=== PATIENT | female | born 1965 | race Caucasian/White ===

== ENCOUNTER → 2019-08-25 14:49 | Outpatient (BNVA) | payer MEDICAID, SELFPAY | PROVIDERS: Family Provider Family Medicine; PCP Family Medicine; Referring Provider Family Medicine; Visit Provider Internal Medicine Rheumatology | DX: L40.50 Arthropathic psoriasis, unspecified (principal); Z79.899 Other long term (current) drug therapy; I10 Essential (primary) hypertension; Z87.891 Personal history of nicotine dependence | CPT/HCPCS: 99213 ==

== ENCOUNTER → 2019-12-03 13:27 | Outpatient (BNVA) | payer MEDICAID, SELFPAY | PROVIDERS: Family Provider Family Medicine; PCP Family Medicine; Visit Provider Internal Medicine Rheumatology | DX: Z79.899 Other long term (current) drug therapy (principal); L40.50 Arthropathic psoriasis, unspecified | CPT/HCPCS: 36415; 80076; 82306; 82565; 85025; 85651; 86140 ==

== ENCOUNTER → 2020-03-02 11:48 | Outpatient (BNVA) | payer MEDICARE, MEDICAID, SELFPAY | PROVIDERS: Family Provider Family Medicine; PCP Family Medicine; Visit Provider Internal Medicine Rheumatology | DX: L40.50 Arthropathic psoriasis, unspecified (principal); Z79.899 Other long term (current) drug therapy; L40.8 Other psoriasis; M48.061 Spinal stenosis, lumbar region without neurogenic claudication; Z86.73 Personal history of transient ischemic attack (TIA), and cerebral infarction without residual deficits | CPT/HCPCS: 99214 ==

== ENCOUNTER → 2020-06-07 11:03 | Outpatient (BNVA) | payer MEDICARE, MEDICAID, SELFPAY | PROVIDERS: Family Provider Family Medicine; PCP Family Medicine; Visit Provider Internal Medicine Rheumatology | DX: L40.50 Arthropathic psoriasis, unspecified (principal); Z79.899 Other long term (current) drug therapy; L40.8 Other psoriasis; M48.061 Spinal stenosis, lumbar region without neurogenic claudication | CPT/HCPCS: 99214 ==

== ENCOUNTER → 2020-12-09 09:24 | Outpatient (BNVA) | payer MEDICARE, MEDICAID, SELFPAY | PROVIDERS: Family Provider Family Medicine; PCP Family Medicine; Visit Provider Surgery | DX: Z01.812 Encounter for preprocedural laboratory examination (principal); Z20.822 Contact with and (suspected) exposure to COVID-19 | CPT/HCPCS: 87635 ==

== ENCOUNTER 2020-12-15 12:54 | Day surgery (SDC) | payer MEDICARE, MEDICAID, SELFPAY ==
[2020-12-15] VITALS (7 sets, daily range): BP systolic 110–173; BP diastolic 68–114; PULSE 57–80; RESP 15–18; TEMP 36.3–36.8; O2SAT 91–96
--- NOTE | 2020-12-15 14:08 | P.ANESASSM_ITS ---
Pre-Anesthetic Assessment Pre-Anesthetic Assessment: Height/Weight: Height 1.73 m Temp Pulse Resp BP Pulse Ox 98.3 F 63 18 173/114 96 12/15/20 13:17 12/15/20 13:17 12/15/20 13:17 12/15/20 13:17 12/15/20 13:17 Proposed Procedure: Operation Date: 12/15/20 14:10 Proposed Procedures p Laparoscopic Adhesiolysis 08808 R10.32 K66.0(Not Applicable) - Aroldo Mcknight MD Was Beta Jermaine taken within 24 hours: Yes Was Clonidine taken within 24 hours: N/A Last intake: Intake Last Liquid Date 12/14/20 Last Liquid Time 19:00 Last Solid Date 12/14/20 Last Solid Time 19:00 Social: Social History: No alcohol and No tobacco (Smokes pot) Exam: Pre-Anes Outpt Exam: alert, oriented x 3, clear to auscultation bilat erally and regular rate & rhythm Airway: Submandibular: WNL Cervical ROM: WNL Dentition: Full CV/HEM: CV/HEM: HTN GI: GI: GERD Metabolic: Metabolic: Morbid obesity Musc/skel: Musc/skel: Lower Back Pain Comments: Psoriatic arthritis Neuropsych: Neuropsych: Anxiety Anesthetic Plan: ASA status: 3 Anesthesia: General Risk of > 500 ml blood loss (7ml/kg in children): No PFSH Anesthesia PFSH: Medical History Degenerative lumbar spinal stenosis High risk medication use History of stroke Immunization counseling Immunosuppression Medication monitoring encounter Psoriasis Psoriatic arthritis Surgical History No pertinent past surgical history Family History Other MPA (microscopic polyangiitis) Social History Smoking and tobacco status: former smoker Alcohol intake: current Alcohol intake frequency: holidays/special occasions only History of recent travel: No Data Anesthesia Cardiac Studies: No Data to Display
[2020-12-15] MEDS: sodium chloride 0.9% 1,000 ML 30 ML IV (14:10)
--- NOTE | 2020-12-15 14:19 | W.PM.OPSUD ---
Surgery/Procedure H&P Update DATE OF PROCEDURE: December 15, 2020 DATE H&P PERFORMED: 12/06/20 H&P UPDATE INFORMATION: No changes to prior documentation PLANNED PROCEDURE: Operation Date: 12/15/20 14:10 Proposed Procedures p Laparoscopic Adhesiolysis 66149 R10.32 K66.0(Not Applicable) - Aroldo Mcknight MD
[2020-12-15] MEDS: midazolam 1 mg/mL INJ 2 mL 2 MG IVP ×2 (14:25→15:45)
--- NOTE | 2020-12-15 17:00 | PM.OP ---
Operative Report Date of procedure: December 15, 2020 Pre-op Diagnosis: Left lower quadrant pain, history of abdominal adhesions. Post-op diagnosis: same Procedure Done: Laparoscopic adhesiolysis. Pathology: none sent Anesthesia: General Estimated blood loss (mL): 10 Complications: None. Condition: stable Disposition: PACU Procedure: The patient was brought to the operating room and was placed in a supine position on the operating room table. General endotracheal anesthesia was induced. The abdomen was prepped and draped in a sterile fashion. A small vertical incision was carried out in the superior aspect of the umbilicus. Blunt dissection was carried out down to the fascia which was grasped with a Brianna clamp. A stay suture of 0 Vicryl was placed on either side of the midline and the midline fascia was incised. The underlying peritoneum was opened bluntly and the Lamb port was placed directly into the peritoneal cavity and was held in place with the inflatable balloon. The peritoneal cavity was insufflated with carbon dioxide. The laparoscope was used to inspect the peritoneal cavity. The patient had some adhesions in the lower abdomen toward the midline. Some of these involved loops of small bowel but no small bowel was intimately associated with the abdominal wall. There were no adhesions in the upper abdomen. Two 5 mm ports were placed on the right side of the abdomen under direct vision. The adhesions were then sequentially taken down using a combination of blunt dissection and sharp dissection with some cautery to maintain hemostasis. All of the adhesions in the lower abdomen were released. The pelvis was irrigated with saline and no ongoing problems were seen. The umbilical port was removed and the stay sutures of Vicryl were tied to each other at the umbilicus, creating an airtight closure. The remaining ports were removed and the abdominal wall and the pneumoperitoneum was evacuated in the process. All skin incisions were then closed using inverted interrupted sutures of 4-0 Vicryl. Benzoin and Steri-Strips were placed over the incisions and sterile Band-Aids followed. The patient was taken to the recovery room in stable condition postoperatively.
[2020-12-15] MEDS: ketorolac 30 mg/mL INJ (17:10)
--- NOTE | 2020-12-15 18:36 | ANE.PACU2 ---
Inpatient post-anesthesia follow up: Airway intact: Yes Vital signs: Temperature 97.4 F Pulse Rate 64 Respiratory Rate 18 Blood Pressure 131/87 Pulse Oximetry 92 Oxygen Delivery Me thod Room Air Oxygen Flow Rate 3 Fraction of Inspir ed Oxygen Hydration adequate: Yes Nausea and vomiting: No Pain level: 2 Mental status: Baseline
== END 2020-12-15 17:57 | disposition home or self-care (01) ==
PROVIDERS: PCP Family Medicine; Visit Provider Surgery
PROC: (CPT 44180; principal; 2020-12-15 14:00)
DX: R10.32 Left lower quadrant pain (principal); K66.0 Peritoneal adhesions (postprocedural) (postinfection); I10 Essential (primary) hypertension; K21.9 Gastro-esophageal reflux disease without esophagitis; E66.01 Morbid (severe) obesity due to excess calories; F41.9 Anxiety disorder, unspecified; Z87.891 Personal history of nicotine dependence
CPT/HCPCS: 44180; 12345; 96374; J0690; J1885; J2250; J2704; J2710; J3010; J3490; J7030

== ENCOUNTER 2021-03-27 14:01 | Outpatient (CLI) | payer MEDICARE, MEDICAID, SELFPAY ==
--- NOTE | 2021-03-27 14:14 | XRR_ITS ---
PROCEDURE INFORMATION: Exam: XR Lumbosacral Spine Exam date and time: 03/27/2021 2:14 PM Age: 56 years old Clinical indication: Pain and injury or trauma; Fall; Blunt trauma (contusions or hematomas); Low back pain; Injury date: 5 weeks ago; Injury details: PT stated she fell 5 wks ago and has had lower back pain since then. PT stated the pain keeps getting worse and often radiates down her RT hip. She said the pain is a constant 8-9 dull but has sharp pains that hit and register 20+ pain; Prior surgery; Surgery type: Ablasions TECHNIQUE: Imaging protocol: XR of the lumbosacral spine. Views: 4 or 5 views. COMPARISON: MRI Lumbar Spine w/o [id number] 05/13/2018 4:33 PM FINDINGS: Bones/joints: No acute fracture. Grade 1 anterolisthesis of L2 on L3 and L3 on L4. Intervertebral disc space narrowing at L5-S1. Multilevel degenerative endplate changes most significant at L5-S1. Vertebral body heights are preserved. Multilevel facet arthropathy throughout the lumbar spine. Soft tissues: Unremarkable. XR/XR lumbar spine min 4V [id number] IMPRESSION: No acute findings. Multilevel spondylosis of the lumbar spine, with grade 1 anterolisthesis of L2 on L3 and L3 on L4, and degenerative disc disease at L5-S1.
== END 2021-03-27 14:02 | disposition home or self-care (01) ==
PROVIDERS: PCP Family Medicine; Visit Provider Family Medicine
DX: M54.5 Low back pain (principal); M47.816 Spondylosis without myelopathy or radiculopathy, lumbar region; M51.37 Other intervertebral disc degeneration, lumbosacral region
CPT/HCPCS: 72110

== ENCOUNTER → 2021-04-04 10:21 | Outpatient (BNVA) | payer MEDICARE, MEDICAID, SELFPAY | PROVIDERS: PCP Family Medicine; Visit Provider Internal Medicine Rheumatology | DX: L40.50 Arthropathic psoriasis, unspecified (principal); L40.9 Psoriasis, unspecified; Z79.899 Other long term (current) drug therapy; Z71.89 Other specified counseling; I69.320 Aphasia following cerebral infarction; I69.351 Hemiplegia and hemiparesis following cerebral infarction affecting right dominant side; I69.398 Other sequelae of cerebral infarction; R20.0 Anesthesia of skin; Z87.891 Personal history of nicotine dependence | CPT/HCPCS: 99214 ==

== ENCOUNTER 2021-04-07 15:31 | Outpatient (CLI) | payer MEDICARE, MEDICAID, SELFPAY ==
--- NOTE | 2021-04-07 15:41 | MR_ITS ---
WS: [id number] MRI LUMBAR SPINE NONCONTRAST HISTORY: LOW BACK PAIN COMPARISON: 05/13/2018 TECHNIQUE: Sagittal and axial multisequence imaging is submitted. Mild inferior displacement of cerebellar tonsils. Benign hemangioma at T3 and T8. 2 mm anterolisthesis of L3. No marrow edema or fracture. Moderate degenerative disc disease and osteophytosis throughout the lumbar spine. Conus terminates normally at L1-2 disc level. L1-L2: Diffuse annular disc bulging with moderate ligamentum flavum hypertrophy and facet arthritis. Mild central and bilateral subarticular recess stenosis. Mild progression since the prior study. L2-L3: Mild annular disc bulging with ligamentum flavum and facet arthritis. Very mild foraminal narr owing. L3-L4: Moderate diffuse annular disc bulging and osteophytic ridging. Moderate to severe ligamentum f lavum hypertrophy and facet arthritis. Mild central, bilateral subarticular recess and foraminal sten osis. Probably no progression since the prior study. L4-L5: Diffuse annular disc bulging with mild ligamentum flavum hypertrophy and facet arthritis. Mild central and foraminal narrowing. No progression of disease. L5-S1: Moderate annular disc bulging and osteophytic ridging. Disc is deformed in the central thecal sac and extending into the lateral recesses and subarticular foramen. Slightly greater displacement o f the RIGHT S1 nerve root. Mild central with moderate to severe subarticular and foraminal stenosis. Minimal change since the prior study. Paravertebral soft tissues are normal. MR/MR lumbar spine wo con* [id number] IMPRESSION: 1. Multilevel degenerative disc disease and facet arthropathy. Most significan t at L3-4 and L5-S1. Mild progression since the prior examination. 2. Mild central with moderate to severe bilateral subarticular recess and fora tee stenosis at L5-S1. Disc contact on the S1 nerve roots and to a lesser ext ent the L5 nerve roots. 3. Mild central and bilateral subarticular recess stenosis at L1-2. 4. Mild central, bilateral subarticular recess and foraminal stenosis at L3-4. 5. Mild central and foraminal stenosis at L4-5.
== END 2021-04-07 15:32 | disposition home or self-care (01) ==
PROVIDERS: PCP Family Medicine; Visit Provider Family Medicine
DX: M54.5 Low back pain (principal); M48.061 Spinal stenosis, lumbar region without neurogenic claudication; M51.36 Other intervertebral disc degeneration, lumbar region; M47.816 Spondylosis without myelopathy or radiculopathy, lumbar region; M48.07 Spinal stenosis, lumbosacral region
CPT/HCPCS: 72148

== ENCOUNTER → 2021-07-26 14:30 | Outpatient (BNVA) | payer MEDICARE, MEDICAID, SELFPAY | PROVIDERS: PCP Family Medicine; Visit Provider Internal Medicine Rheumatology | DX: L40.50 Arthropathic psoriasis, unspecified (principal); L40.9 Psoriasis, unspecified; Z51.81 Encounter for therapeutic drug level monitoring; Z79.899 Other long term (current) drug therapy; I69.351 Hemiplegia and hemiparesis following cerebral infarction affecting right dominant side; I69.328 Other speech and language deficits following cerebral infarction; Z90.49 Acquired absence of other specified parts of digestive tract; Z71.89 Other specified counseling; Z87.891 Personal history of nicotine dependence | CPT/HCPCS: 99214 ==

== ENCOUNTER → 2021-12-12 15:02 | Outpatient (BNVA) | payer MEDICARE, MEDICAID, SELFPAY | PROVIDERS: PCP Family Medicine; Visit Provider Internal Medicine Rheumatology | DX: L40.50 Arthropathic psoriasis, unspecified (principal); L40.9 Psoriasis, unspecified; Z79.899 Other long term (current) drug therapy; I69.351 Hemiplegia and hemiparesis following cerebral infarction affecting right dominant side; I69.328 Other speech and language deficits following cerebral infarction; Z71.89 Other specified counseling | CPT/HCPCS: 36415; 80076; 82565; 85025; 86140; 99214 ==

== ENCOUNTER 2022-03-22 06:02 | Day surgery (SDC) | payer MEDICARE, MEDICAID, SELFPAY ==
[2022-03-21 13:00] VITALS: BMI 36.8
--- NOTE | 2022-03-22 06:19 | P.ANESASSM_ITS ---
Pre-Anesthetic Assessment Height/Weight: Height 1.73 m Weight 109.769 kg Preop Diagnosis: Left lower quadrant pain, history of abdominal adhesions. Operation Date: 03/22/22 07:40 Proposed Procedures p Laparoscopic Adhesiolysis 41797,R10.32,K66.0(Not Applicable) - Aroldo Mcknight MD Familial anesthetic complications: None Was Beta Jermaine taken within 24 hours: Yes Was Clonidine taken within 24 hours: N/A Last intake: 03/21/22 Social Alcohol (Holidays ) and Tobacco (Per patient vapes ) Exam alert, oriented x 3, clear to auscultation bilaterally and regular rate & rhythm Airway Submandibular: within normal limits Cervical ROM: within normal limits Mallampati: Class II Comments: Comments: Broken molars Pulmonary Sleep Apnea (Not treated since significant weight loss ) CV/HEM None reported None reported Hepatic None reported GI None reported Denies GERD Metabolic None reported Musc/skel Psoriasis Immunosuppresion On prednisone PRN for flares, no prednisone for about 2 weeks Neuropsych Cerebrovascular Accident (After spine outpatient procedure. RUE weakness) Anesthetic Plan ASA status: 3 Anesthesia: Anesthesia Evaluation and General Other: We discussed risk and benefits of general anesthesia including PONV, sore throat (sometimes severe), corneal abrasion, positioning and peripheral nerve injuries, life threatening allergic reaction, post operative ICU admission requiring prolonged intubation, aspiration, stroke, heart attack, , and rare incidences of recall. Patient consents to proceed with general anesthesia. MAC 3, grade 1 view, ETT 7.0 on 12/16/2020 Risk of > 500 ml blood loss (7ml/kg in children): No Medications/Allergies Home Medications Medication Instructions Recorded Confirmed Last Taken Type ESTROPIPATE 1 mg PO DAILY 08/25/19 03/21/22 12/14/20 History alprazolam 1 mg tablet 1 mg PO TID PRN Anxiety 08/25/19 03/21/22 12/14/20 History aspirin 325 mg tablet 325 mg PO DAILY 08/25/19 03/21/22 12/13/20 History desonide 0.05 % topical cream 1 applic topical BID 08/25/19 03/21/22 12/14/20 History fluticasone propionate 50 1 spray intranasal BID PRN sob 08/25/19 03/21/22 Unknown History mcg/actuation nasal spray,suspension hydrocodone 10 mg-acetaminophen 1 tab PO Q4H PRN Pain 08/25/19 03/21/22 12/14/20 History 325 mg tablet metoprolol tartrate 50 mg tablet 50 mg PO DAILY 08/25/19 03/21/22 12/15/20 08:00 History nifedipine 10 mg capsule 10 mg PO BID 08/25/19 03/21/22 12/15/20 08:00 History omeprazole 20 mg tablet,delayed 20 mg PO DAILY 08/25/19 03/21/22 12/14/20 Hist ory release pregabalin 75 mg capsule (Lyrica) 150 mg PO BID 08/25/19 03/21/22 12/14/20 History cholecalciferol (vitamin D3) 50 50 mcg PO DAILY #30 caps 03/02/20 03/21/22 12/14/20 Rx mcg (2,000 unit) capsule diclofenac sodium 1 % topical gel 4 g topical QID #200 grams 04/04/21 03/21/22 Unknown Rx adalimumab 40 mg/0.8 mL 40 mg (0.8 mL) SUBCUT Q14D #2 ea 12/12/21 03/21/22 Unknown Rx subcutaneous pen kit (Humira Pen) folic acid 1 mg tablet 1 mg PO DAILY #90 tabs 12/12/21 03/21/22 Unknown Rx prednisone 20 mg tablet See Rx Instructions PO .COMPLEX 12/12/21 03/21/22 Unkn own Rx PRN joint pain flare #30 tabs methotrexate sodium 25 mg/mL See Rx Instructions .Route 02/05/22 03/21/22 Unknown Rx injection solution .COMPLEX #10 mL apremilast 30 mg tablet (Otezla) 30 mg PO BID 03/21/22 03/21/22 Unknown History dicyclomine 10 mg capsule 10 mg PO QID PRN Pain 03/21/22 03/21/22 Unknown History ondansetron HCl 4 mg tablet 4 mg PO Q8H PRN Nausea 03/21/22 03/21/22 Unknown History Allergies Allergy/AdvReac Type Severity Reaction Status Date / Time sulfasalazine AdvReac Intermediate raised BP Verified 03/21/22 12:53 and severe N/V PFSH Anesthesia Medical History Degenerative lumbar spinal stenosis High risk medication use History of stroke Immunization counseling Immunosuppression Medication monitoring encounter Psoriasis Psoriatic arthritis Surgical History No pertinent past surgical history Family History Other MPA (microscopic polyangiitis) Social History Smoking and tobacco status: never smoked Alcohol intake: current Alcohol intake frequency: holidays/special occasions only History of recent travel: No Data Anesthesia Cardiac Studies: No Data to Display
[2022-03-22 06:24] VITALS: BP 112/75; PULSE 63; RESP 16; TEMP 36.1; O2SAT 95
[2022-03-22] MEDS: sodium chloride 0.9% 1,000 ML 30 ML IV (06:34)
--- NOTE | 2022-03-22 06:36 | W.PM.OPSUD ---
Surgery/Procedure H&P Update DATE OF PROCEDURE: March 22, 2022 DATE H&P PERFORMED: 03/20/22 H&P UPDATE INFORMATION: No changes to prior documentation PREOP DIAGNOSIS: Left lower quadrant pain, history of abdominal adhesions. PLANNED PROCEDURE: Operation Date: 03/22/22 07:40 Proposed Procedures p Laparoscopic Adhesiolysis 42382,R10.32,K66.0(Not Applicable) - Aroldo Mcknight MD
[2022-03-22] MEDS: midazolam 1 mg/mL INJ 2 mL 2 MG IVP (07:08)
[2022-03-22] MEDS: ceFAZolin 2,000 MG in sodium chloride 0.9% (plus) 50 ML 100 MG IV (07:49)
--- NOTE | 2022-03-22 08:31 | PM.OP ---
Operative Report Date of procedure: March 22, 2022 Pre-op diagnosis: Preop Diagnosis Left lower quadrant pain, history of abdominal adhesions. Post-op diagnosis: Same, intra-abdominal adhesions. Procedure done: Laparoscopic adhesiolysis. Specimens removed/disposition: None sent. Surgeon: General Surgery Aroldo Mcknight MD Estimated blood loss: 5 mL. Complications: None. Procedure: The patient was brought to the operating room and was placed in a supine position on the operating room table. General endotracheal anesthesia was induced. The abdomen was prepped and draped in a sterile fashion. The small vertical scar just above the umbilicus was reopened using a scalpel. Blunt dissection was carried out down to the fascia which was grasped with a Brianna clamp. A stay suture of 0 Vicryl was placed on either side of the midline and the midline fascia was incised. The underlying peritoneum was opened bluntly and the Lamb port was placed directly into the peritoneal cavity and was held in place with the inflatable balloon. The peritoneal cavity was insufflated with carbon dioxide. The laparoscope was used to inspect all quadrants. The patient had adhesions to the anterior abdominal wall in the left lower quadrant and these extended down into the left lower quadrant and central pelvis. No other intra-abdominal abnormalities were seen. A 5 mm port was placed on the right side of the abdomen under direct vision at the site of a previous 5 mm port placement. The adhesions were sequentially taken down using blunt dissection with some cautery to maintain hemostasis. The patient was eventually placed in a Trendelenburg position to facilitate dissection fairly deep into the pelvis until all of the adhesions had been taken down. The Lamb port was then removed from the abdominal wall and the stay sutures of Vicryl were tied to each other, closing the fascial defect so that it was airtight. The pneumoperitoneum was evacuated and the remaining 5 mm port was removed. All skin incisions were closed using inverted interrupted sutures of 4-0 Vicryl. Benzoin and Steri-Strips were placed over the incisions and sterile Band-Aids followed. The patient was taken to the recovery area in stable condition postoperatively.
[2022-03-22 08:40] VITALS: BP 117/80; PULSE 76; RESP 13; TEMP 36.3; O2SAT 95
[2022-03-22 08:45] VITALS: BP 130/85; PULSE 72; RESP 20; O2SAT 96
[2022-03-22 08:51] VITALS: BP 119/81; PULSE 64; RESP 18; TEMP 36.3; O2SAT 95
[2022-03-22 08:56] VITALS: BP 100/73; PULSE 59; RESP 16; TEMP 36.1; O2SAT 96
[2022-03-22 09:09] VITALS: BP 110/76; PULSE 62; RESP 18; O2SAT 98
--- NOTE | 2022-03-22 11:17 | ANE.PACU2 ---
Inpatient post-anesthesia follow up: Airway intact: Yes Vital signs: Temperature 97.0 F Pulse Rate 62 Respiratory Rate 18 Blood Pressure 110/76 Pulse Oximetry 98 Oxygen Delivery Me thod Room Air Oxygen Flow Rate Fraction of Inspir ed Oxygen Hydration adequate: Yes Nausea and vomiting: No Pain level: 1 Mental status: Baseline
== END 2022-03-22 09:36 | disposition home or self-care (01) ==
PROVIDERS: PCP Family Medicine; Visit Provider Surgery
PROC: (CPT 44180; principal; 2022-03-22 07:30)
DX: K66.0 Peritoneal adhesions (postprocedural) (postinfection) (principal); F17.290 Nicotine dependence, other tobacco product, uncomplicated; G47.30 Sleep apnea, unspecified; Z79.82 Long term (current) use of aspirin; Z86.73 Personal history of transient ischemic attack (TIA), and cerebral infarction without residual deficits; K21.9 Gastro-esophageal reflux disease without esophagitis; I10 Essential (primary) hypertension
CPT/HCPCS: 44180; J0330; J1100; J1170; J2250; J2405; J2704; J2710; J3010; J3490; J7030

== ENCOUNTER → 2022-04-19 12:43 | Outpatient (BNVA) | payer MEDICARE, MEDICAID, SELFPAY | PROVIDERS: PCP Family Medicine; Visit Provider Internal Medicine Rheumatology | DX: L40.50 Arthropathic psoriasis, unspecified (principal); Z79.899 Other long term (current) drug therapy; Z71.89 Other specified counseling; L40.9 Psoriasis, unspecified; M47.816 Spondylosis without myelopathy or radiculopathy, lumbar region; M48.061 Spinal stenosis, lumbar region without neurogenic claudication; Z90.49 Acquired absence of other specified parts of digestive tract; I69.351 Hemiplegia and hemiparesis following cerebral infarction affecting right dominant side | CPT/HCPCS: 99214 ==

== ENCOUNTER → 2022-08-27 13:03 | Outpatient (BNVA) | payer MEDICARE, MEDICAID, SELFPAY | PROVIDERS: PCP Family Medicine; Visit Provider Internal Medicine Rheumatology | DX: L40.50 Arthropathic psoriasis, unspecified (principal); Z79.899 Other long term (current) drug therapy; Z71.89 Other specified counseling; L40.9 Psoriasis, unspecified; I69.351 Hemiplegia and hemiparesis following cerebral infarction affecting right dominant side; Z90.49 Acquired absence of other specified parts of digestive tract | CPT/HCPCS: 99214 ==

== ENCOUNTER → 2022-11-27 13:21 | Outpatient (BNVA) | payer MEDICARE, MEDICAID, SELFPAY | PROVIDERS: PCP Family Medicine; Visit Provider Internal Medicine Rheumatology | DX: L40.50 Arthropathic psoriasis, unspecified (principal); Z79.899 Other long term (current) drug therapy; Z71.89 Other specified counseling; L40.9 Psoriasis, unspecified | CPT/HCPCS: 99214 ==

== ENCOUNTER 2022-12-07 08:05 | Oncology outpatient (recurring) (ONCR) | payer MEDICARE, MEDICAID, SELFPAY ==
[2022-12-07 08:19] VITALS: BMI 42.5
[2022-12-07 08:44] LABS: Erythrocyte Sedimentation Rate 13 mm/hr (0-15)
[2022-12-07] MEDS: sodium chloride 0.9% 250 ML 75 ML IV (08:49)
[2022-12-07] MEDS: acetaminophen 325 mg Tablet 650 MG PO (08:54)
[2022-12-07] MEDS: diphenhydrAMINE 50 mg/mL SDV 1mL 25 MG IVP (08:55)
[2022-12-07 08:58] LABS: Alanine Aminotransferase 13 U/L (0-33); Albumin Level 3.7 g/dL (3.5-5.2); Alkaline Phosphatase 61 U/L (35-105); Aspartate Amino Transferase 14 U/L (0-32); Globulin 2.8 g/dL (1.3-4.6); Total Bilirubin 0.3 mg/dL (0.15-1.2); Total Protein 6.5 g/dL (6.6-8.7)
[2022-12-07] MEDS: abatacept 500 MG in sodium chloride 0.9% (100 ml) 100 ML 200 MG IV (09:08)
[2022-12-07 09:55] VITALS: BP 85/57; PULSE 64; RESP 18; TEMP 35.9; O2SAT 95
[2022-12-07 10:38] VITALS: BP 79/51; PULSE 58; RESP 18; O2SAT 96
[2022-12-07 10:43] VITALS: BP 91/59; PULSE 58; RESP 18; O2SAT 95
[2022-12-07 10:58] VITALS: BP 112/71; PULSE 57; RESP 18; TEMP 36.1; O2SAT 95
--- NOTE | 2022-12-07 12:19 | PC.NURSE ---
Patient had 1st infusion of Orencia today. After infusion was done ana mariaen'ts b/p was 85/57 at 0955. B/P checked again at 10:38 after NS fluid was infused a little bit more and it was 79/51. Upped the NS fluid to a bolus and patient then stated was getting a headache and B/P was checked again at 91/59. Called Dr. Sharma and spoke to nurse Arianna about patient's symptoms. Arianna let me know that Dr. Bishop was not in today but if she continues to have a low b/p or any other symptoms to get checked out at the ER. This nurse let the patient know if she continues with the headache or low blood pressure to get checked out at the ER and patient acknowledged understanding. Patient said that she is feeling better and she got the rest of the NS. B/p at the time of departure was 112/71. Patient's IV was deaccessed. I told the patient to get a hold of Dr. Bishop's office on Saturday and find out he will change her treatment. Patient said she was feeling better and departed without any questions or concerns.
== END 2022-12-09 23:59 | disposition home or self-care (01) ==
PROVIDERS: PCP Family Medicine; Visit Provider Internal Medicine Rheumatology
DX: L40.50 Arthropathic psoriasis, unspecified (principal); Z79.899 Other long term (current) drug therapy
CPT/HCPCS: 80076; 82565; 85651; 96361; 96365; 96375; J0129; J1200; J7050

== ENCOUNTER 2023-01-04 08:30 | Oncology outpatient (recurring) (ONCR) | payer MEDICARE, MEDICAID, SELFPAY ==
[2022-12-21 08:30] VITALS: BP 138/89; PULSE 83; RESP 18; TEMP 36.4; O2SAT 96
[2022-12-21] MEDS: acetaminophen 325 mg Tablet 650 MG PO (08:47)
[2022-12-21] MEDS: dexamethasone 10 mg/mL INJ 6 MG IVP (08:47)
[2022-12-21] MEDS: diphenhydrAMINE 50 mg/mL SDV 1mL 25 MG IVP (08:48)
[2022-12-21] MEDS: sodium chloride 0.9% 500 ML IV (08:48)
[2022-12-21] MEDS: abatacept 500 MG in sodium chloride 0.9% (100 ml) 100 ML 200 MG IV (08:49)
[2022-12-21 09:35] VITALS: BP 104/67; PULSE 64; RESP 18; TEMP 36.2; O2SAT 93
[2023-01-04] MEDS: acetaminophen 325 mg Tablet 650 MG PO (08:50)
[2023-01-04] MEDS: sodium chloride 0.9% 250 ML 75 ML IV (08:52)
[2023-01-04] MEDS: diphenhydrAMINE 50 mg/mL SDV 1mL 25 MG IVP (08:54)
[2023-01-04 09:01] VITALS: BP 113/71; PULSE 67; RESP 16; TEMP 35.9; O2SAT 96
[2023-01-04] MEDS: abatacept 500 MG in sodium chloride 0.9% (100 ml) 100 ML 200 MG IV (09:04)
[2023-01-04 09:14] VITALS: BMI 41.2
[2023-01-04 09:58] VITALS: BP 100/64; PULSE 61; RESP 18; TEMP 36.2; O2SAT 94
== END 2023-01-09 23:59 | disposition home or self-care (01) ==
PROVIDERS: PCP Family Medicine; Visit Provider Internal Medicine Rheumatology
DX: L40.50 Arthropathic psoriasis, unspecified (principal)
CPT/HCPCS: 96365; 96375; 96409; 96413; J0129; J1100; J1200; J7040; J7050

== ENCOUNTER 2023-02-04 13:51 | Oncology outpatient (recurring) (ONCR) | payer MEDICARE, MEDICAID, SELFPAY ==
[2023-02-04 14:15] VITALS: BP 147/83; PULSE 83; RESP 18; TEMP 36.2; O2SAT 97
[2023-02-04] MEDS: sodium chloride 0.9% 250 ML 75 ML IV (14:20)
[2023-02-04] MEDS: diphenhydrAMINE 50 mg/mL SDV 1mL 25 MG IVP (14:20)
[2023-02-04] MEDS: acetaminophen 325 mg Tablet 650 MG PO (14:21)
[2023-02-04] MEDS: abatacept 500 MG in sodium chloride 0.9% (100 ml) 100 ML 200 MG IV (14:44)
[2023-02-04 15:35] VITALS: BP 121/76; PULSE 69; RESP 18; TEMP 36.2; O2SAT 97
== END 2023-02-08 23:59 | disposition home or self-care (01) ==
LOC: ONCMED 13:52
PROVIDERS: PCP Family Medicine; Visit Provider Internal Medicine Rheumatology
DX: L40.50 Arthropathic psoriasis, unspecified (principal); Z79.899 Other long term (current) drug therapy
CPT/HCPCS: 96365; 96375; J0129; J1200; J7050

== ENCOUNTER → 2023-02-07 13:53 | Outpatient (BNVA) | payer MEDICARE, MEDICAID, SELFPAY | PROVIDERS: PCP Family Medicine; Visit Provider Internal Medicine Rheumatology | DX: L40.9 Psoriasis, unspecified (principal); Z79.899 Other long term (current) drug therapy; Z71.89 Other specified counseling | CPT/HCPCS: 99214 ==

== ENCOUNTER 2023-03-04 07:46 | Oncology outpatient (recurring) (ONCR) | payer MEDICARE, MEDICAID, SELFPAY ==
--- NOTE | 2023-02-14 12:26 | PC.PHAR ---
NEW ORDERS FOR ORENCIA 750MG: CLARIFIED WITH DR Sharma: HE DOES NOT WANT PATIENT TO REPEAT INDUCTION PHASE. PATIENT SHOULD INCREASE TO 750MG AT NEXT SCHEDULED DOSE MAINTENNACE THERAPY. RBTO DR Sharma/TOMASZ GLASGOW
[2023-03-04 08:00] VITALS: BP 126/82; PULSE 66; RESP 18; TEMP 36.3; O2SAT 99
[2023-03-04] MEDS: diphenhydrAMINE 50 mg/mL SDV 1mL 25 MG IVP (08:14)
[2023-03-04] MEDS: sodium chloride 0.9% 250 ML 75 ML IV (08:15)
[2023-03-04] MEDS: acetaminophen 325 mg Tablet 650 MG PO (08:15)
[2023-03-04] MEDS: abatacept 750 MG in sodium chloride 0.9% (100 ml) 100 ML 200 MG IV (08:59)
[2023-03-04 09:40] VITALS: BP 122/61; PULSE 55; RESP 18; TEMP 36; O2SAT 97
== END 2023-03-11 23:59 | disposition home or self-care (01) ==
PROVIDERS: PCP Family Medicine; Visit Provider Internal Medicine Rheumatology
DX: L40.50 Arthropathic psoriasis, unspecified (principal)
CPT/HCPCS: 96374; 96413; J0129; J1200; J7050

== ENCOUNTER 2023-04-01 07:53 | Oncology outpatient (recurring) (ONCR) | payer MEDICARE, MEDICAID, SELFPAY ==
[2023-04-01 08:45] VITALS: BP 147/80; PULSE 68; RESP 16; TEMP 36.1; O2SAT 98
[2023-04-01 08:52] LABS: Basophils # 0.1 10^3/uL (0.0-0.1); Basophils % 1.1 %; Eosinophils # 0.2 10^3/uL (0.0-0.8); Eosinophils % 2.4 %; Hematocrit 39.6 % (37.0-47.0); Hemoglobin 12.9 g/dL (11.5-15.3); Lymphocytes # 1.7 10^3/uL (0.8-4.8); Mean Corpuscular HGB Conc 32.6 g/dL (30.0-36.0); Mean Corpuscular Hemoglobin 31.7 pg (28.0-34.0); Mean Corpuscular Volume 97.3 fl (81-99); Mean Platelet Volume 10.4 fL (7.4-10.4); Monocytes # 0.5 10^3/uL (0.2-0.9); Monocytes % 7.6 %; Neutrophils % 61.6 %; Nucleated Red Blood Cells % 0 %; Platelet Count 287 10^3/cmm (130-400); Red Blood Count 4.07 10^6/uL (4.1-5.3); Red Cell Distribution Width 13.5 % (12.1-15.1); White Blood Count 6.3 10^3/uL (4.0-10.0)
[2023-04-01] MEDS: sodium chloride 0.9% 250 ML 75 ML IV (08:55)
[2023-04-01] MEDS: acetaminophen 325 mg Tablet 650 MG PO (08:55)
[2023-04-01] MEDS: diphenhydrAMINE 50 mg/mL SDV 1mL 25 MG IVP (08:56)
[2023-04-01] MEDS: abatacept 750 MG in sodium chloride 0.9% (100 ml) 100 ML 200 MG IV (09:15)
[2023-04-01 09:36] LABS: Erythrocyte Sedimentation Rate 8 mm/hr (0-15)
[2023-04-01 10:15] VITALS: BP 139/81; PULSE 55; RESP 16; TEMP 36.1; O2SAT 97
[2023-04-01 10:51] LABS: Alanine Aminotransferase 10 U/L (0-33); Albumin Level 3.3 g/dL (3.5-5.2); Alkaline Phosphatase 77 U/L (35-105); Globulin 2.6 g/dL (1.3-4.6); Glomerular Filtration Rate 102.7 mL/min (90-130); Total Bilirubin 0.5 mg/dL (0.15-1.2); Total Protein 5.9 g/dL (6.6-8.7)
[2023-04-01 10:55] LABS: Aspartate Amino Transferase 13 U/L (0-32)
== END 2023-04-11 23:59 | disposition home or self-care (01) ==
PROVIDERS: PCP Family Medicine; Visit Provider Internal Medicine Rheumatology
DX: L40.50 Arthropathic psoriasis, unspecified (principal)
CPT/HCPCS: 80076; 82565; 85025; 85651; 96365; 96375; 96413; J0129; J1200; J7050

== ENCOUNTER → 2023-04-17 12:49 | Outpatient (BNVA) | payer MEDICARE, MEDICAID, SELFPAY | PROVIDERS: PCP Family Medicine; Visit Provider Internal Medicine Rheumatology | DX: Z79.899 Other long term (current) drug therapy (principal); L40.50 Arthropathic psoriasis, unspecified; Z71.89 Other specified counseling; L40.9 Psoriasis, unspecified | CPT/HCPCS: 99214 ==

== ENCOUNTER 2023-04-29 07:46 | Oncology outpatient (recurring) (ONCR) | payer MEDICARE, MEDICAID, SELFPAY ==
[2023-04-29] MEDS: acetaminophen 325 mg Tablet 650 MG PO (08:29)
[2023-04-29] MEDS: sodium chloride 0.9% 250 ML 75 ML IV (08:29)
[2023-04-29] MEDS: diphenhydrAMINE 50 mg/mL SDV 1mL 25 MG IVP (08:30)
[2023-04-29] MEDS: abatacept 1,000 MG in sodium chloride 0.9% (100 ml) 100 ML 200 MG IV (09:09)
[2023-04-29 10:10] VITALS: BP 109/70; PULSE 56; RESP 16; TEMP 36.4; O2SAT 96
== END 2023-05-11 23:59 | disposition home or self-care (01) ==
PROVIDERS: PCP Family Medicine; Visit Provider Internal Medicine Rheumatology
DX: L40.50 Arthropathic psoriasis, unspecified (principal); Z53.9 Procedure and treatment not carried out, unspecified reason
CPT/HCPCS: 96375; 96413; J0129; J1200; J7050

== ENCOUNTER 2023-05-27 07:55 | Oncology outpatient (recurring) (ONCR) | payer MEDICARE, MEDICAID, SELFPAY ==
[2023-05-27 08:34] LABS: Basophils # 0.1 10^3/uL (0.0-0.1); Basophils % 1.3 %; Eosinophils # 0.1 10^3/uL (0.0-0.8); Eosinophils % 2.9 %; Hematocrit 38.2 % (36-47); Lymphocytes # 1.7 10^3/uL (0.8-4.8); Lymphocytes % 37.7 %; Mean Corpuscular HGB Conc 32.7 g/dL (30-55); Mean Corpuscular Hemoglobin 31.6 pg (27-33); Mean Corpuscular Volume 96.5 fl (85-98); Mean Platelet Volume 10.6 fL (7.4-10.4); Monocytes # 0.4 10^3/uL (0.2-0.9); Monocytes % 9.8 %; Neutrophils # 2.17 10^3/uL (1.8-7.7); Neutrophils % 48.1 %; Nucleated Red Blood Cells % 0 %; Platelet Count 218 10^3/cmm (157-399); Red Blood Count 3.96 10^6/uL (3.85-5.65); Red Cell Distribution Width 12.9 % (12.1-15.1); White Blood Count 4.51 10^3/uL (3.29-11.43)
[2023-05-27 08:50] LABS: Alanine Aminotransferase 12 U/L (0-33); Albumin Level 3.5 g/dL (3.5-5.2); Alkaline Phosphatase 88 U/L (35-105); Aspartate Amino Transferase 17 U/L (0-32); C Reactive Protein 5.4 mg/L (0.0-4.9); Globulin 2.7 g/dL (1.3-4.6); Glomerular Filtration Rate 85.9 mL/min (90-130); Total Bilirubin 0.3 mg/dL (0.15-1.2); Total Protein 6.2 g/dL (6.6-8.7)
[2023-05-27] MEDS: acetaminophen 325 mg Tablet 650 MG PO (08:50)
[2023-05-27] MEDS: sodium chloride 0.9% 250 ML 75 ML IV (08:51)
[2023-05-27] MEDS: diphenhydrAMINE 50 mg/mL SDV 1mL 25 MG IVP (08:55)
[2023-05-27 09:35] LABS: Slide Review Slide Review Perform
[2023-05-27] MEDS: abatacept 1,000 MG in sodium chloride 0.9% (100 ml) 100 ML 200 MG IV (09:47)
[2023-05-27 10:26] VITALS: BP 125/77; PULSE 66; RESP 17; TEMP 36.4; O2SAT 98
== END 2023-06-11 23:59 | disposition home or self-care (01) ==
LOC: ONCMED 07:55
PROVIDERS: PCP Family Medicine; Visit Provider Internal Medicine Rheumatology
DX: L40.50 Arthropathic psoriasis, unspecified (principal)
CPT/HCPCS: 80076; 82565; 85025; 86140; 96375; 96413; J0129; J1200; J7050

== ENCOUNTER 2023-07-02 08:00 | Oncology outpatient (recurring) (ONCR) | payer MEDICARE, MEDICAID, SELFPAY ==
[2023-06-27] MEDS: acetaminophen 325 mg Tablet 650 MG PO (09:53)
--- NOTE | 2023-06-27 16:33 | PC.NURSE ---
Patient had surgery with antibiotics on Saturday. Unable to do infusion and will reschedule. Patients primary MD was called several times by patient and staff. No results.
[2023-07-02 08:09] VITALS: BP 115/70; PULSE 62; RESP 17; TEMP 35.9; O2SAT 95
[2023-07-02] MEDS: sodium chloride 0.9% 250 ML 75 ML IV (08:42)
[2023-07-02] MEDS: acetaminophen 325 mg Tablet 650 MG PO (08:45)
[2023-07-02] MEDS: diphenhydrAMINE 50 mg/mL SDV 1mL 25 MG IVP (08:47)
[2023-07-02] MEDS: abatacept 1,000 MG in sodium chloride 0.9% (100 ml) 100 ML 200 MG IV (09:01)
== END 2023-07-11 23:59 | disposition home or self-care (01) ==
PROVIDERS: PCP Family Medicine; Visit Provider Internal Medicine Rheumatology
DX: L40.50 Arthropathic psoriasis, unspecified (principal)
CPT/HCPCS: 96365; 96375; J0129; J1200; J7050

== ENCOUNTER 2023-08-15 07:49 | Oncology outpatient (recurring) (ONCR) | payer MEDICARE, MEDICAID, SELFPAY ==
[2023-08-15 08:11] VITALS: BP 121/73; PULSE 68; RESP 18; TEMP 36.6; O2SAT 94
[2023-08-15] MEDS: acetaminophen 325 mg Tablet 650 MG PO (08:43)
[2023-08-15] MEDS: diphenhydrAMINE 50 mg/mL SDV 1mL 25 MG IVP (08:44)
[2023-08-15] MEDS: sodium chloride 0.9% 250 ML 75 ML IV (08:45)
[2023-08-15 08:50] LABS: Basophils # 0.1 10^3/uL (0.0-0.1); Basophils % 1.5 %; Eosinophils # 0.1 10^3/uL (0.0-0.8); Eosinophils % 2.3 %; Hematocrit 38.2 % (36-47); Lymphocytes # 1.6 10^3/uL (0.8-4.8); Lymphocytes % 31.2 %; Mean Corpuscular HGB Conc 32.7 g/dL (30-55); Mean Corpuscular Hemoglobin 31.6 pg (27-33); Mean Corpuscular Volume 96.5 fl (85-98); Mean Platelet Volume 10.4 fL (7.4-10.4); Monocytes # 0.3 10^3/uL (0.2-0.9); Monocytes % 6.2 %; Neutrophils # 3.04 10^3/uL (1.8-7.7); Neutrophils % 58.6 %; Nucleated Red Blood Cells % 0 %; Platelet Count 235 10^3/cmm (157-399); Red Blood Count 3.96 10^6/uL (3.85-5.65); Red Cell Distribution Width 13.5 % (12.1-15.1); White Blood Count 5.19 10^3/uL (3.29-11.43)
[2023-08-15] MEDS: abatacept 1,000 MG in sodium chloride 0.9% (100 ml) 100 ML 200 MG IV (08:50)
[2023-08-15 09:03] LABS: Alanine Aminotransferase 13 U/L (0-33); Albumin Level 3.4 g/dL (3.5-5.2); Alkaline Phosphatase 74 U/L (35-105); Aspartate Amino Transferase 16 U/L (0-32); C Reactive Protein 4.2 mg/L (0.0-4.9); Globulin 2.9 g/dL (1.3-4.6); Glomerular Filtration Rate 102.7 mL/min (90-130); Total Bilirubin 0.6 mg/dL (0.15-1.2); Total Protein 6.3 g/dL (6.6-8.7)
[2023-08-15 09:52] VITALS: BP 111/76; PULSE 60; RESP 17; TEMP 36.5; O2SAT 96
== END 2023-09-11 23:59 | disposition home or self-care (01) ==
PROVIDERS: PCP Family Medicine; Visit Provider Internal Medicine Rheumatology
DX: L40.50 Arthropathic psoriasis, unspecified (principal); Z79.899 Other long term (current) drug therapy
CPT/HCPCS: 80076; 82565; 85025; 86140; 96365; 96375; J0129; J1200; J7050

== ENCOUNTER 2023-10-10 14:00 | Oncology outpatient (recurring) (ONCR) | payer MEDICARE, MEDICAID, SELFPAY ==
[2023-09-12 08:08] VITALS: BP 115/76; PULSE 70; RESP 16; TEMP 36.2; O2SAT 95
[2023-09-12] MEDS: sodium chloride 0.9% 250 ML 75 ML IV (08:37)
[2023-09-12] MEDS: acetaminophen 325 mg Tablet 650 MG PO (08:38)
[2023-09-12] MEDS: diphenhydrAMINE 50 mg/mL SDV 1mL 25 MG IVP (08:39)
[2023-09-12] MEDS: abatacept 1,000 MG in sodium chloride 0.9% (100 ml) 100 ML 200 MG IV (09:06)
[2023-09-12 09:56] VITALS: BP 105/68; PULSE 69; O2SAT 96
[2023-10-10 13:54] VITALS: BP 143/77; PULSE 72; RESP 16; TEMP 36.7; O2SAT 97
[2023-10-10] MEDS: acetaminophen 325 mg Tablet 650 MG PO (14:05)
[2023-10-10] MEDS: diphenhydrAMINE 50 mg/mL SDV 1mL 25 MG IVP (14:05)
[2023-10-10] MEDS: abatacept 1,000 MG in sodium chloride 0.9% (100 ml) 100 ML 200 MG IV (14:40)
== END 2023-10-10 23:59 | disposition home or self-care (01) ==
PROVIDERS: PCP Family Medicine; Visit Provider Internal Medicine Rheumatology
DX: L40.50 Arthropathic psoriasis, unspecified (principal); Z53.9 Procedure and treatment not carried out, unspecified reason
CPT/HCPCS: 96365; 96375; A4222; J0129; J1200; J7050

== ENCOUNTER → 2023-10-15 09:04 | Outpatient (BNVA) | payer MEDICARE, MEDICAID, SELFPAY | PROVIDERS: PCP Family Medicine; Visit Provider Internal Medicine Rheumatology | DX: L40.50 Arthropathic psoriasis, unspecified (principal); Z79.899 Other long term (current) drug therapy; Z71.89 Other specified counseling; L40.9 Psoriasis, unspecified | CPT/HCPCS: 99214 ==

== ENCOUNTER 2023-11-07 07:58 | Oncology outpatient (recurring) (ONCR) | payer MEDICARE, MEDICAID, SELFPAY ==
[2023-11-07 08:08] VITALS: BP 136/91; PULSE 90; RESP 18; TEMP 36.6; O2SAT 98
[2023-11-07] MEDS: sodium chloride 0.9% 250 ML 75 ML IV (08:26)
[2023-11-07] MEDS: diphenhydrAMINE 50 mg/mL SDV 1mL 25 MG IVP (08:26)
[2023-11-07] MEDS: acetaminophen 325 mg Tablet 650 MG PO (08:27)
[2023-11-07] MEDS: abatacept 1,000 MG in sodium chloride 0.9% (100 ml) 100 ML 200 MG IV (09:28)
[2023-11-07 10:13] VITALS: BP 99/68; PULSE 70; RESP 16; TEMP 36.7; O2SAT 99
== END 2023-11-10 23:59 | disposition home or self-care (01) ==
LOC: ONCMED 07:59
PROVIDERS: PCP Family Medicine; Visit Provider Internal Medicine Rheumatology
DX: L40.50 Arthropathic psoriasis, unspecified (principal)
CPT/HCPCS: 96365; 96374; 96375; J0129; J1200; J7050

== ENCOUNTER 2023-12-05 07:39 | Oncology outpatient (recurring) (ONCR) | payer MEDICARE, MEDICAID, SELFPAY ==
[2023-12-05 08:32] LABS: Basophils # 0.1 10^3/uL (0.0-0.1); Basophils % 1.6 %; Eosinophils # 0.2 10^3/uL (0.0-0.8); Hematocrit 40.7 % (36-47); Lymphocytes # 1.5 10^3/uL (0.8-4.8); Lymphocytes % 28.9 %; Mean Corpuscular HGB Conc 32.7 g/dL (30-55); Mean Corpuscular Hemoglobin 31.7 pg (27-33); Mean Corpuscular Volume 97.1 fl (85-98); Mean Platelet Volume 10.4 fL (7.4-10.4); Monocytes # 0.2 10^3/uL (0.2-0.9); Monocytes % 4.6 %; Neutrophils # 3.12 10^3/uL (1.8-7.7); Neutrophils % 61.7 %; Nucleated Red Blood Cells % 0 %; Platelet Count 240 10^3/cmm (157-399); Red Blood Count 4.19 10^6/uL (3.85-5.65); Red Cell Distribution Width 13.7 % (12.1-15.1); White Blood Count 5.05 10^3/uL (3.29-11.43)
[2023-12-05 08:41] VITALS: BP 122/74; PULSE 72; RESP 16; TEMP 36.1; O2SAT 99
[2023-12-05] MEDS: acetaminophen 325 mg Tablet 650 MG PO (08:42)
[2023-12-05] MEDS: diphenhydrAMINE 50 mg/mL SDV 1mL 25 MG IVP (08:42)
[2023-12-05] MEDS: sodium chloride 0.9% 250 ML 75 ML IV (08:43)
[2023-12-05 08:48] LABS: Alanine Aminotransferase 13 U/L (0-33); Albumin Level 3.8 g/dL (3.5-5.2); Alkaline Phosphatase 74 U/L (35-105); Aspartate Amino Transferase 16 U/L (0-32); C Reactive Protein 6.8 mg/L (0.0-4.9); Creatinine Clr Calc Pharmacy 149.9718; Globulin 2.8 g/dL (1.3-4.6); Glomerular Filtration Rate 102.7 mL/min (90-130); Total Bilirubin 0.4 mg/dL (0.15-1.2); Total Protein 6.6 g/dL (6.6-8.7)
[2023-12-05] MEDS: abatacept 1,000 MG in sodium chloride 0.9% (100 ml) 100 ML 200 MG IV (09:00)
[2023-12-05 09:46] VITALS: BP 101/70; PULSE 66; RESP 18; TEMP 36.6; O2SAT 93
== END 2023-12-10 23:59 | disposition home or self-care (01) ==
PROVIDERS: PCP Family Medicine; Visit Provider Internal Medicine Rheumatology
DX: L40.50 Arthropathic psoriasis, unspecified (principal); Z79.899 Other long term (current) drug therapy
CPT/HCPCS: 80076; 82565; 85025; 86140; 96365; 96374; 96375; A4222; J0129; J1200; J7050

== ENCOUNTER 2024-01-02 07:47 | Oncology outpatient (recurring) (ONCR) | payer MEDICARE, MEDICAID, SELFPAY ==
[2024-01-02 07:55] VITALS: BP 148/88; PULSE 70; RESP 18; TEMP 35.8; O2SAT 95
[2024-01-02] MEDS: diphenhydrAMINE 50 mg/mL SDV 1mL 25 MG IVP (08:09)
[2024-01-02] MEDS: sodium chloride 0.9% 250 ML 75 ML IV (08:09)
[2024-01-02] MEDS: acetaminophen 325 mg Tablet 650 MG PO (08:10)
[2024-01-02] MEDS: abatacept 1,000 MG in sodium chloride 0.9% (100 ml) 100 ML 200 MG IV (08:37)
[2024-01-02 09:15] VITALS: BP 113/68; PULSE 76; RESP 18; TEMP 36.2; O2SAT 96
== END 2024-01-10 23:59 | disposition home or self-care (01) ==
PROVIDERS: PCP Family Medicine; Visit Provider Internal Medicine Rheumatology
DX: L40.50 Arthropathic psoriasis, unspecified (principal)
CPT/HCPCS: 96375; 96413; A4222; J0129; J1200; J7050

== ENCOUNTER 2024-01-30 08:20 | Oncology outpatient (recurring) (ONCR) | payer MEDICARE, MEDICAID, SELFPAY ==
[2024-01-30 08:36] VITALS: BP 126/85; PULSE 61; RESP 17; TEMP 36.4; O2SAT 97
[2024-01-30] MEDS: sodium chloride 0.9% 250 ML 75 ML IV (09:02)
[2024-01-30] MEDS: acetaminophen 325 mg Tablet 650 MG PO (09:08)
[2024-01-30] MEDS: diphenhydrAMINE 50 mg/mL SDV 1mL 25 MG IVP (09:09)
[2024-01-30] MEDS: abatacept 1,000 MG in sodium chloride 0.9% (100 ml) 100 ML 200 MG IV (09:49)
[2024-01-30 10:51] VITALS: BP 115/76; PULSE 54; RESP 16; TEMP 36.2; O2SAT 93
== END 2024-02-09 23:59 | disposition home or self-care (01) ==
LOC: ONCMED 08:21
PROVIDERS: PCP Family Medicine; Visit Provider Internal Medicine Rheumatology
DX: L40.50 Arthropathic psoriasis, unspecified (principal)
CPT/HCPCS: 96365; 96375; A4222; J0129; J1200; J7050

== ENCOUNTER 2024-02-10 11:03 | Outpatient (CLI) | payer MEDICARE, MEDICAID, SELFPAY ==
--- NOTE | 2024-02-10 11:11 | MM_ITS ---
WS: [id number] SCREENING DIGITAL BREAST TOMOSYNTHESIS MAMMOGRAM WITH CAD HISTORY: SCREENING COMPARISON: 03/28/2006 Bilateral CC and MLO with tomosynthesis and synthetic mammography submitted. Computer aided detection analyzed. Breast composition: There are scattered areas of fibroglandular density. There is a small mass with c alcifications measuring 5 mm in the lateral anterior LEFT breast near 9:00 which should be further ev aluated with ultrasound. This may be a small complex cyst. Otherwise negative. MM/[place] [id number] IMPRESSION: BI-RADS: 0-Incomplete: Need additional imaging evaluation FOLLOW UP: Need Additional Imaging Recommendation: LEFT breast ultrasound, limited. Focused to the medial LEFT twan ast near 9:00. 5 mm mass may be a complex cyst. There are calcifications within the wall.
== END 2024-02-10 11:04 | disposition home or self-care (01) ==
LOC: RAD 11:04
PROVIDERS: PCP Family Medicine; Visit Provider Family Medicine
DX: Z12.31 Encounter for screening mammogram for malignant neoplasm of breast (principal); R92.323 Mammographic fibroglandular density, bilateral breasts; N63.25 Unspecified lump in the left breast, overlapping quadrants
CPT/HCPCS: 77063; 77067

== ENCOUNTER 2024-02-27 07:38 | Oncology outpatient (recurring) (ONCR) | payer MEDICARE, MEDICAID, SELFPAY ==
[2024-02-27 07:45] VITALS: BP 113/67; PULSE 71; RESP 17; TEMP 35.8; O2SAT 95
[2024-02-27 08:12] LABS: Basophils # 0.1 10^3/uL (0.0-0.1); Basophils % 1.1 %; Eosinophils # 0.1 10^3/uL (0.0-0.8); Eosinophils % 2.2 %; Lymphocytes # 1.7 10^3/uL (0.8-4.8); Lymphocytes % 30.7 %; Mean Corpuscular HGB Conc 32.4 g/dL (30-55); Mean Corpuscular Hemoglobin 32.1 pg (27-33); Mean Corpuscular Volume 98.9 fl (85-98); Mean Platelet Volume 10.3 fL (7.4-10.4); Monocytes # 0.5 10^3/uL (0.2-0.9); Neutrophils # 3.14 10^3/uL (1.8-7.7); Neutrophils % 56.6 %; Nucleated Red Blood Cells % 0 %; Platelet Count 242 10^3/cmm (157-399); Red Blood Count 3.74 10^6/uL (3.85-5.65); Red Cell Distribution Width 13.8 % (12.1-15.1); White Blood Count 5.54 10^3/uL (3.29-11.43)
[2024-02-27] MEDS: acetaminophen 325 mg Tablet 650 MG PO (08:15)
[2024-02-27] MEDS: sodium chloride 0.9% 250 ML 75 ML IV (08:15)
[2024-02-27] MEDS: diphenhydrAMINE 50 mg/mL SDV 1mL 25 MG IVP (08:16)
[2024-02-27 08:29] LABS: Alanine Aminotransferase 12 U/L (0-33); Albumin Level 3.5 g/dL (3.5-5.2); Alkaline Phosphatase 66 U/L (35-105); Aspartate Amino Transferase 14 U/L (0-32); C Reactive Protein 10.2 mg/L (0.0-4.9); Creatinine Clr Calc Pharmacy 148.5228; Globulin 2.6 g/dL (1.3-4.6); Glomerular Filtration Rate 102.3 mL/min (90-130); Total Bilirubin 0.3 mg/dL (0.15-1.2); Total Protein 6.1 g/dL (6.6-8.7)
[2024-02-27] MEDS: abatacept 1,000 MG in sodium chloride 0.9% (100 ml) 100 ML 200 MG IV (08:37)
[2024-02-27 09:27] VITALS: BP 93/55; PULSE 62; RESP 18; TEMP 36; O2SAT 94
== END 2024-03-11 23:59 | disposition home or self-care (01) ==
LOC: ONCMED 07:38
PROVIDERS: PCP Family Medicine; Visit Provider Internal Medicine Rheumatology
DX: L40.50 Arthropathic psoriasis, unspecified (principal); Z51.12 Encounter for antineoplastic immunotherapy; Z79.899 Other long term (current) drug therapy
CPT/HCPCS: 80076; 82565; 85025; 86140; 96365; J0129; J1200; J7050

== ENCOUNTER → 2024-03-05 09:17 | Outpatient (BNVA) | payer MEDICARE, MEDICAID, SELFPAY | PROVIDERS: PCP Family Medicine; Visit Provider Dermatology | DX: C43.61 Malignant melanoma of right upper limb, including shoulder (principal); D22.5 Melanocytic nevi of trunk; L82.1 Other seborrheic keratosis; L81.4 Other melanin hyperpigmentation | CPT/HCPCS: 11604; 12034; 99213 ==

== ENCOUNTER 2024-03-09 08:49 | Outpatient (CLI) | payer MEDICARE, MEDICAID, SELFPAY ==
--- NOTE | 2024-03-09 09:35 | US_ITS ---
WS: [id number] ULTRASOUND LEFT BREAST HISTORY: AOI on screening mammo COMPARISON: Mammogram 02/10/2024 TECHNIQUE: 2-D and Doppler. There is a small cyst measuring 3 x 4 x 2 mm in the LEFT breast at 9:00, 3 cm from the nipple. This c orresponds to the mammographic finding and is most consistent with a small cyst. There may be small c alcifications within the wall. There is an adjacent vessel also. No shadowing. No solid mass or incre ased vascularity. US/US breast LT limited* [id number] IMPRESSION: BI-RADS: 2-Benign FOLLOW-UP: 1 Year Follow-up Mammographic abnormality corresponds to a benign cyst.
== END 2024-03-09 08:50 | disposition home or self-care (01) ==
LOC: RAD 08:50
PROVIDERS: PCP Family Medicine; Visit Provider Family Medicine
DX: R92.8 Other abnormal and inconclusive findings on diagnostic imaging of breast (principal); N60.02 Solitary cyst of left breast
CPT/HCPCS: 76642

== ENCOUNTER 2024-04-03 06:35 | Oncology outpatient (recurring) (ONCR) | payer MEDICARE, MEDICAID, SELFPAY ==
[2024-03-26 07:47] VITALS: BP 150/88; PULSE 85; RESP 18; TEMP 36.6; O2SAT 94
[2024-03-26] MEDS: acetaminophen 325 mg Tablet 650 MG PO (08:07)
[2024-03-26] MEDS: diphenhydrAMINE 50 mg/mL SDV 1mL 25 MG IVP (08:08)
[2024-03-26] MEDS: sodium chloride 0.9% 250 ML 75 ML IV (08:08)
[2024-03-26] MEDS: abatacept 1,000 MG in sodium chloride 0.9% (100 ml) 100 ML 200 MG IV (08:30)
[2024-03-26 09:20] VITALS: BP 119/68; PULSE 63; RESP 18; TEMP 36.4; O2SAT 92
--- NOTE | 2024-04-03 06:45 | US_ITS ---
WS: [id number] ULTRASOUND SOFT TISSUES posterior LEFT knee. HISTORY: M71.20 - Synovial cyst of popliteal space [Casas], unspec... COMPARISON: None available. TECHNIQUE: 2-D and color Doppler imaging is submitted. There is a complex nonvascular cystic mass with low-level echoes posterior to the LEFT knee. Mass ext ends over a length of 3.7 cm x 1.8 x 1.0 cm. US/US soft tissue/extremity [id number] IMPRESSION: Mildly complex Casas's cyst posterior LEFT knee.
== END 2024-04-11 23:55 | disposition home or self-care (01) ==
PROVIDERS: PCP Family Medicine; Visit Provider Internal Medicine Rheumatology
DX: M71.22 Synovial cyst of popliteal space [Baker], left knee
CPT/HCPCS: 76882; 96365; 96375; A4222; J0129; J1200; J7050

== ENCOUNTER → 2024-04-08 09:59 | Outpatient (BNVA) | payer MEDICARE, MEDICAID, SELFPAY | PROVIDERS: PCP Family Medicine; Visit Provider Physician Assistant | DX: M17.12 Unilateral primary osteoarthritis, left knee | CPT/HCPCS: 20610; 73560; 73565; 99203; J3301 ==

== ENCOUNTER 2024-04-23 07:49 | Oncology outpatient (recurring) (ONCR) | payer MEDICARE, MEDICAID, SELFPAY ==
[2024-04-23 08:06] VITALS: BP 135/75; PULSE 65; RESP 18; TEMP 36.4; O2SAT 95
[2024-04-23] MEDS: sodium chloride 0.9% 250 ML 75 ML IV (08:11)
[2024-04-23] MEDS: acetaminophen 325 mg Tablet 650 MG PO (08:11)
[2024-04-23] MEDS: diphenhydrAMINE 50 mg/mL SDV 1mL 25 MG IVP (08:13)
[2024-04-23] MEDS: abatacept 1,000 MG in sodium chloride 0.9% (100 ml) 100 ML 200 MG IV (08:59)
[2024-04-23 09:45] VITALS: BP 112/71; PULSE 59; TEMP 36.2; O2SAT 96
== END 2024-05-11 23:59 | disposition home or self-care (01) ==
PROVIDERS: PCP Family Medicine; Visit Provider Internal Medicine Rheumatology
DX: Z79.899 Other long term (current) drug therapy; L40.50 Arthropathic psoriasis, unspecified
CPT/HCPCS: 96365; 96375; A4222; J0129; J1200; J7050

== ENCOUNTER 2024-05-21 07:53 | Oncology outpatient (recurring) (ONCR) | payer MEDICARE, MEDICAID, SELFPAY ==
[2024-05-21 08:06] VITALS: BP 149/79; PULSE 66; RESP 16; TEMP 37; O2SAT 95
[2024-05-21] MEDS: sodium chloride 0.9% 250 ML 75 ML IV (08:34)
[2024-05-21] MEDS: acetaminophen 325 mg Tablet 650 MG PO (08:34)
[2024-05-21] MEDS: diphenhydrAMINE 50 mg/mL SDV 1mL 25 MG IVP (08:36)
[2024-05-21 09:00] LABS: Basophils # 0.1 10^3/uL (0.0-0.1); Basophils % 0.9 %; Eosinophils # 0.2 10^3/uL (0.0-0.8); Eosinophils % 2.9 %; Hematocrit 40.6 % (36-47); Lymphocytes # 1.6 10^3/uL (0.8-4.8); Lymphocytes % 29.5 %; Mean Corpuscular HGB Conc 32.5 g/dL (30-55); Mean Corpuscular Hemoglobin 32.4 pg (27-33); Mean Corpuscular Volume 99.5 fl (85-98); Mean Platelet Volume 10.3 fL (7.4-10.4); Monocytes # 0.4 10^3/uL (0.2-0.9); Neutrophils # 3.28 10^3/uL (1.8-7.7); Neutrophils % 59.2 %; Nucleated Red Blood Cells % 0 %; Platelet Count 210 10^3/cmm (157-399); Red Blood Count 4.08 10^6/uL (3.85-5.65); Red Cell Distribution Width 14.2 % (12.1-15.1); White Blood Count 5.55 10^3/uL (3.29-11.43)
[2024-05-21 09:19] LABS: Alanine Aminotransferase 11 U/L (0-33); Albumin Level 3.5 g/dL (3.5-5.2); Alkaline Phosphatase 79 U/L (35-105); Aspartate Amino Transferase 13 U/L (0-32); C Reactive Protein 6.4 mg/L (0.0-4.9); Creatinine Clr Calc Pharmacy 123.2617; Globulin 2.6 g/dL (1.3-4.6); Glomerular Filtration Rate 85.6 mL/min (90-130); Total Bilirubin 0.4 mg/dL (0.15-1.2); Total Protein 6.1 g/dL (6.6-8.7)
[2024-05-21 09:22] LABS: Erythrocyte Sedimentation Rate 8 mm/hr (0-15)
[2024-05-21] MEDS: abatacept 1,000 MG in sodium chloride 0.9% (100 ml) 100 ML 200 MG IV (09:29)
[2024-05-21 10:04] VITALS: BP 105/74; PULSE 64; RESP 16; TEMP 36.3; O2SAT 94
== END 2024-06-11 23:59 | disposition home or self-care (01) ==
PROVIDERS: PCP Family Medicine; Visit Provider Internal Medicine Rheumatology
DX: L40.50 Arthropathic psoriasis, unspecified (principal); Z79.899 Other long term (current) drug therapy
CPT/HCPCS: 80076; 82565; 85025; 85651; 86140; 96365; 96375; A4222; J0129; J1200; J7050

== ENCOUNTER 2024-06-18 07:48 | Oncology outpatient (recurring) (ONCR) | payer MEDICARE, MEDICAID, SELFPAY ==
[2024-06-18 07:53] VITALS: BP 123/72; BP 126/76; PULSE 58; PULSE 64; RESP 16; TEMP 36.1; TEMP 36.7; O2SAT 98
[2024-06-18] MEDS: acetaminophen 325 mg Tablet 650 MG PO (08:12)
[2024-06-18] MEDS: diphenhydrAMINE 50 mg/mL SDV 1mL 25 MG IVP (08:13)
[2024-06-18] MEDS: abatacept 1,000 MG in sodium chloride 0.9% (100 ml) 100 ML 200 MG IV (08:38)
== END 2024-07-11 23:59 | disposition home or self-care (01) ==
PROVIDERS: PCP Family Medicine; Visit Provider Internal Medicine Rheumatology
DX: L40.50 Arthropathic psoriasis, unspecified (principal); Z79.899 Other long term (current) drug therapy
CPT/HCPCS: 96365; A4222; J0129; J1200

== ENCOUNTER 2024-07-16 07:48 | Oncology outpatient (recurring) (ONCR) | payer MEDICARE, MEDICAID, SELFPAY ==
[2024-07-16 08:08] VITALS: BP 150/89; PULSE 66; RESP 16; TEMP 36.3; O2SAT 97
[2024-07-16] MEDS: acetaminophen 325 mg Tablet 650 MG PO (08:36)
[2024-07-16] MEDS: sodium chloride 0.9% 250 ML 75 ML IV (08:37)
[2024-07-16] MEDS: diphenhydrAMINE 50 mg/mL SDV 1mL 25 MG IVP (08:37)
[2024-07-16] MEDS: abatacept 1,000 MG in sodium chloride 0.9% (100 ml) 100 ML 200 MG IV (09:24)
[2024-07-16 10:16] VITALS: BP 120/83; PULSE 54; TEMP 36; O2SAT 91
== END 2024-08-11 23:59 | disposition home or self-care (01) ==
PROVIDERS: PCP Family Medicine; Visit Provider Internal Medicine Rheumatology
DX: L40.50 Arthropathic psoriasis, unspecified (principal); Z79.899 Other long term (current) drug therapy
CPT/HCPCS: 96365; A4222; J0129; J1200; J7050

== ENCOUNTER → 2024-09-04 08:22 | Outpatient (BNVA) | payer MEDICARE, MEDICAID, SELFPAY | PROVIDERS: PCP Family Medicine; Visit Provider Physician Assistant | DX: M17.12 Unilateral primary osteoarthritis, left knee (principal) | CPT/HCPCS: 20610; 99213; J3301 ==

== ENCOUNTER 2024-09-10 08:00 | Oncology outpatient (recurring) (ONCR) | payer MEDICARE, MEDICAID, SELFPAY ==
[2024-08-13 08:38] VITALS: BP 112/72; PULSE 59; RESP 16; TEMP 36.5; O2SAT 96
[2024-08-13] MEDS: acetaminophen 325 mg Tablet 650 MG PO (09:02)
[2024-08-13] MEDS: diphenhydrAMINE 50 mg/mL SDV 1mL 25 MG IVP (09:02)
[2024-08-13] MEDS: sodium chloride 0.9% 250 ML 50 ML IV (09:03)
[2024-08-13 09:31] LABS: Basophils # 0.1 10^3/uL (0.0-0.1); Basophils % 1.4 %; Eosinophils # 0.1 10^3/uL (0.0-0.8); Eosinophils % 2.3 %; Hematocrit 41.6 % (36-47); Lymphocytes # 1.4 10^3/uL (0.8-4.8); Lymphocytes % 24.6 %; Mean Corpuscular HGB Conc 33.2 g/dL (30-55); Mean Corpuscular Hemoglobin 31.7 pg (27-33); Mean Corpuscular Volume 95.4 fl (85-98); Mean Platelet Volume 10.3 fL (7.4-10.4); Monocytes # 0.5 10^3/uL (0.2-0.9); Monocytes % 9.4 %; Neutrophils # 3.45 10^3/uL (1.8-7.7); Neutrophils % 62.1 %; Nucleated Red Blood Cells % 0 %; Platelet Count 264 10^3/cmm (157-399); Red Blood Count 4.36 10^6/uL (3.85-5.65); White Blood Count 5.56 10^3/uL (3.29-11.43)
[2024-08-13 09:45] LABS: C Reactive Protein 7.9 mg/L (0.0-4.9); Creatinine Clr Calc Pharmacy 120.5356; Glomerular Filtration Rate 85.6 mL/min (90-130)
[2024-08-13 09:46] LABS: Alanine Aminotransferase 14 U/L (0-33); Albumin Level 3.9 g/dL (3.5-5.2); Alkaline Phosphatase 70 U/L (35-105); Aspartate Amino Transferase 16 U/L (0-32); Globulin 2.5 g/dL (1.3-4.6); Total Bilirubin 0.8 mg/dL (0.15-1.2); Total Protein 6.4 g/dL (6.6-8.7)
[2024-08-13 09:56] LABS: Erythrocyte Sedimentation Rate 11 mm/hr (0-15)
[2024-08-13] MEDS: abatacept 1,000 MG in sodium chloride 0.9% (100 ml) 100 ML 200 MG IV (10:02)
[2024-08-13 10:46] VITALS: BP 114/78; PULSE 60; O2SAT 95
[2024-09-10 08:00] VITALS: BP 106/75; PULSE 58; RESP 18; TEMP 36.7; O2SAT 99
[2024-09-10] MEDS: sodium chloride 0.9% 250 ML 75 ML IV (08:39)
[2024-09-10] MEDS: acetaminophen 325 mg Tablet 650 MG PO (08:40)
[2024-09-10] MEDS: diphenhydrAMINE 50 mg/mL SDV 1mL 25 MG IVP (08:41)
[2024-09-10] MEDS: abatacept 1,000 MG in sodium chloride 0.9% (100 ml) 100 ML 200 MG IV (09:22)
[2024-09-10 10:01] VITALS: BP 105/68; PULSE 52; TEMP 35.9; O2SAT 95
== END 2024-09-10 23:59 | disposition home or self-care (01) ==
PROVIDERS: PCP Family Medicine; Visit Provider Internal Medicine Rheumatology
DX: Z53.9 Procedure and treatment not carried out, unspecified reason (principal); L40.50 Arthropathic psoriasis, unspecified; Z79.899 Other long term (current) drug therapy
CPT/HCPCS: 80076; 82565; 85025; 85651; 86140; 96365; 96375; A4222; J0129; J1200; J7050

== ENCOUNTER → 2024-10-05 10:23 | Outpatient (BNVA) | payer MEDICARE, MEDICAID, SELFPAY | PROVIDERS: PCP Family Medicine; Visit Provider Internal Medicine Rheumatology | DX: L40.50 Arthropathic psoriasis, unspecified (principal); Z79.899 Other long term (current) drug therapy; Z71.89 Other specified counseling; L40.9 Psoriasis, unspecified | CPT/HCPCS: 99214 ==

== ENCOUNTER 2024-10-08 07:57 | Oncology outpatient (recurring) (ONCR) | payer MEDICAID, SELFPAY ==
[2024-10-08 08:32] VITALS: BP 104/66; PULSE 56; RESP 17; TEMP 36.3; O2SAT 96
[2024-10-08] MEDS: acetaminophen 325 mg Tablet 650 MG PO (08:45)
[2024-10-08] MEDS: sodium chloride 0.9% 250 ML 75 ML IV (08:46)
[2024-10-08] MEDS: diphenhydrAMINE 50 mg/mL SDV 1mL 25 MG IVP (08:51)
[2024-10-08] MEDS: abatacept 1,000 MG in sodium chloride 0.9% (100 ml) 100 ML 200 MG IV (09:22)
[2024-10-08 10:02] VITALS: BP 97/60; PULSE 47; RESP 18; TEMP 36.1; O2SAT 90
== END 2024-10-09 23:59 | disposition home or self-care (01) ==
PROVIDERS: PCP Family Medicine; Visit Provider Internal Medicine Rheumatology
DX: L40.50 Arthropathic psoriasis, unspecified (principal); Z79.899 Other long term (current) drug therapy
CPT/HCPCS: 96413; A4222; J0129; J1200; J7050

== ENCOUNTER 2024-11-12 08:04 | Oncology outpatient (recurring) (ONCR) | payer MEDICARE, MEDICAID, SELFPAY ==
[2024-11-12 08:43] LABS: Basophils # 0.1 10^3/uL (0.0-0.1); Basophils % 1.4 %; Eosinophils # 0.1 10^3/uL (0.0-0.8); Eosinophils % 1.4 %; Hematocrit 40.8 % (36-47); Lymphocytes # 1.8 10^3/uL (0.8-4.8); Lymphocytes % 27.7 %; Mean Corpuscular HGB Conc 32.8 g/dL (30-55); Mean Corpuscular Hemoglobin 30.9 pg (27-33); Mean Platelet Volume 10.7 fL (7.4-10.4); Monocytes # 0.5 10^3/uL (0.2-0.9); Monocytes % 6.8 %; Neutrophils # 4.13 10^3/uL (1.8-7.7); Neutrophils % 62.5 %; Nucleated Red Blood Cells % 0 %; Platelet Count 250 10^3/cmm (157-399); Red Blood Count 4.34 10^6/uL (3.85-5.65); Red Cell Distribution Width 13.7 % (12.1-15.1)
[2024-11-12] MEDS: acetaminophen 325 mg Tablet 650 MG PO (08:48)
[2024-11-12 08:53] LABS: Erythrocyte Sedimentation Rate 11 mm/hr (0-15)
[2024-11-12] MEDS: diphenhydrAMINE 50 mg/mL SDV 1mL 25 MG IVP (08:55)
[2024-11-12 09:02] LABS: Alanine Aminotransferase 10 U/L (0-33); Albumin Level 4.1 g/dL (3.5-5.2); Alkaline Phosphatase 80 U/L (35-105); Aspartate Amino Transferase 15 U/L (0-32); Blood Urea Nitrogen 10 mg/dL (6-20); C Reactive Protein 5.5 mg/L (0.0-4.9); Calcium 8.8 mg/dL (8.5-10.5); Carbon Dioxide 24 mmol/L (22-29); Chloride 104 mmol/L (98-107); Globulin 2.6 g/dL (1.3-4.6); Glomerular Filtration Rate 85.6 mL/min (90-130); Glucose 124 mg/dL (65-115); Osmolality Calculated 290 mOsm/kg (285-295); Sodium 140 mmol/L (136-145); Total Protein 6.7 g/dL (6.6-8.7)
[2024-11-12] MEDS: abatacept 1,000 MG in sodium chloride 0.9% (100 ml) 100 ML 200 MG IV (09:18)
== END 2024-12-09 23:59 | disposition home or self-care (01) ==
PROVIDERS: PCP Family Medicine; Visit Provider Internal Medicine Rheumatology
DX: L40.50 Arthropathic psoriasis, unspecified (principal); Z79.899 Other long term (current) drug therapy
CPT/HCPCS: 80053; 85025; 85651; 86140; 96365; 96375; A4222; J0129; J1200; J9999

== ENCOUNTER → 2024-12-04 08:38 | Outpatient (BNVA) | payer MEDICARE, MEDICAID, SELFPAY | PROVIDERS: PCP Family Medicine; Visit Provider Physician Assistant | DX: M17.12 Unilateral primary osteoarthritis, left knee (principal); Z71.89 Other specified counseling | CPT/HCPCS: 20610; 99213; J3301; J9999 ==

== ENCOUNTER → 2024-12-15 14:36 | Outpatient (BNVA) | payer MEDICARE, MEDICAID, SELFPAY | PROVIDERS: PCP Family Medicine; Visit Provider Physician Assistant | DX: M25.561 Pain in right knee (principal); M17.0 Bilateral primary osteoarthritis of knee | CPT/HCPCS: 73560; 73565; 99213 ==

== ENCOUNTER 2025-01-07 08:00 | Oncology outpatient (recurring) (ONCR) | payer MEDICARE, MEDICAID, SELFPAY ==
[2024-12-10 08:32] VITALS: BP 101/63; PULSE 56; RESP 16; TEMP 36.7; O2SAT 99
[2024-12-10] MEDS: acetaminophen 325 mg Tablet 650 MG PO (08:42)
[2024-12-10] MEDS: diphenhydrAMINE 50 mg/mL SDV 1mL 25 MG IVP (08:43)
[2024-12-10] MEDS: abatacept 1,000 MG in sodium chloride 0.9% (100 ml) 100 ML 200 MG IV (09:04)
[2024-12-10 09:36] VITALS: BP 89/59; PULSE 48; RESP 17; TEMP 36.6; O2SAT 89
[2025-01-07 08:12] VITALS: BP 107/75; PULSE 52; RESP 16; TEMP 36.6; O2SAT 98
[2025-01-07] MEDS: acetaminophen 325 mg Tablet 650 MG PO (08:25)
[2025-01-07] MEDS: sodium chloride 0.9% 250 ML IV (08:26)
[2025-01-07] MEDS: diphenhydrAMINE 50 mg/mL SDV 1mL 25 MG IVP (08:26)
[2025-01-07] MEDS: abatacept 1,000 MG in sodium chloride 0.9% (100 ml) 100 ML 200 MG IV (08:53)
== END 2025-01-09 23:59 | disposition home or self-care (01) ==
PROVIDERS: PCP Family Medicine; Visit Provider Internal Medicine Rheumatology
DX: Z53.9 Procedure and treatment not carried out, unspecified reason; L40.50 Arthropathic psoriasis, unspecified; Z79.899 Other long term (current) drug therapy
CPT/HCPCS: 96365; 96375; A4222; J0129; J1200; J7050; J9999

== ENCOUNTER → 2025-02-01 10:58 | Outpatient (BNVA) | payer MEDICARE, MEDICAID, SELFPAY | PROVIDERS: PCP Family Medicine; Visit Provider Internal Medicine Rheumatology | DX: L40.50 Arthropathic psoriasis, unspecified (principal); Z79.899 Other long term (current) drug therapy; Z71.89 Other specified counseling; L40.9 Psoriasis, unspecified | CPT/HCPCS: 99214 ==

== ENCOUNTER 2025-02-04 07:50 | Oncology outpatient (recurring) (ONCR) | payer OTHER, MEDICAID, SELFPAY ==
[2025-02-04 08:14] VITALS: BP 103/68; PULSE 58; RESP 17; TEMP 35.9; O2SAT 98
[2025-02-04 08:47] LABS: Basophils # 0.1 10^3/uL (0.0-0.1); Basophils % 0.9 %; Eosinophils # 0.2 10^3/uL (0.0-0.8); Eosinophils % 2.2 %; Hematocrit 39.1 % (36-47); Lymphocytes # 1.9 10^3/uL (0.8-4.8); Lymphocytes % 24.9 %; Mean Corpuscular HGB Conc 31.7 g/dL (30-55); Mean Corpuscular Hemoglobin 30.8 pg (27-33); Mean Corpuscular Volume 97.3 fl (85-98); Mean Platelet Volume 10.3 fL (7.4-10.4); Monocytes # 0.5 10^3/uL (0.2-0.9); Neutrophils # 4.98 10^3/uL (1.8-7.7); Neutrophils % 64.7 %; Nucleated Red Blood Cells % 0 %; Platelet Count 233 10^3/cmm (157-399); Red Blood Count 4.02 10^6/uL (3.85-5.65); Red Cell Distribution Width 14.5 % (12.1-15.1)
[2025-02-04 08:52] LABS: Erythrocyte Sedimentation Rate 7 mm/hr (0-15)
[2025-02-04] MEDS: acetaminophen 325 mg Tablet 650 MG PO (09:02)
[2025-02-04] MEDS: sodium chloride 0.9% 250 ML IV (09:04)
[2025-02-04] MEDS: diphenhydrAMINE 50 mg/mL SDV 1mL 25 MG IVP (09:07)
[2025-02-04] MEDS: abatacept 1,000 MG in sodium chloride 0.9% (100 ml) 100 ML 200 MG IV (09:56)
[2025-02-04 11:14] LABS: Alanine Aminotransferase 7 U/L (0-33); Albumin Level 3.2 g/dL (3.5-5.2); Alkaline Phosphatase 58 U/L (35-105); Aspartate Amino Transferase 9 U/L (0-32); Bilirubin Direct 0.17 mg/dL (0.00-0.30); C Reactive Protein 3.4 mg/L (0.0-4.9); Globulin 2.3 g/dL (1.3-4.6); Glomerular Filtration Rate 102.3 mL/min (90-130); Total Bilirubin 0.3 mg/dL (0.15-1.2); Total Protein 5.5 g/dL (6.6-8.7)
== END 2025-02-08 23:59 | disposition home or self-care (01) ==
PROVIDERS: PCP Family Medicine; Visit Provider Internal Medicine Rheumatology
DX: L40.50 Arthropathic psoriasis, unspecified (principal); Z79.899 Other long term (current) drug therapy
CPT/HCPCS: 80076; 82565; 85025; 85651; 86140; 96365; 96375; J0129; J1200; J7050; J9999

== ENCOUNTER 2025-03-04 07:56 | Oncology outpatient (recurring) (ONCR) | payer OTHER, MEDICAID, SELFPAY ==
[2025-03-04 08:04] VITALS: BP 96/68; PULSE 51; TEMP 35.9
[2025-03-04] MEDS: diphenhydrAMINE 50 mg/mL SDV 1mL 25 MG IVP (08:58)
[2025-03-04] MEDS: abatacept 1,000 MG in sodium chloride 0.9% (100 ml) 100 ML 200 MG IV (09:46)
== END 2025-03-11 23:59 | disposition home or self-care (01) ==
PROVIDERS: PCP Family Medicine; Visit Provider Internal Medicine Rheumatology
DX: L40.50 Arthropathic psoriasis, unspecified (principal); Z79.899 Other long term (current) drug therapy
CPT/HCPCS: 96375; 96413; A4222; J0129; J1200; J7050; J9999

== ENCOUNTER → 2025-03-09 09:34 | Outpatient (BNVA) | payer OTHER, MEDICAID, SELFPAY | PROVIDERS: PCP Family Medicine; Visit Provider Physician Assistant | DX: M17.0 Bilateral primary osteoarthritis of knee (principal) | CPT/HCPCS: 20610; 99213; J3301; J9999 ==

== ENCOUNTER 2025-04-22 08:04 | Oncology outpatient (recurring) (ONCR) | payer OTHER, MEDICAID, SELFPAY ==
[2025-04-22 08:44] LABS: Hematocrit 38.6 % (36-47); Hemoglobin 12.70 g/dL (11.27-16.99); Mean Corpuscular HGB Conc 32.9 g/dL (30-55); Mean Corpuscular Hemoglobin 32.3 pg (27-33); Mean Corpuscular Volume 98.2 fl (85-98); Nucleated Red Blood Cells % 0 %; Platelet Count 209 10^3/cmm (157-399); Red Blood Count 3.93 10^6/uL (3.85-5.65); White Blood Count 9.93 10^3/uL (3.29-11.43)
[2025-04-22] MEDS: diphenhydrAMINE 50 mg/mL SDV 1mL 25 MG IVP (09:07)
[2025-04-22 09:10] LABS: Alanine Aminotransferase 11 U/L (0-33); Albumin Level 3.5 g/dL (3.5-5.2); Alkaline Phosphatase 60 U/L (35-105); Aspartate Amino Transferase 11 U/L (0-32); Creatinine Clr Calc Pharmacy 129.7497; Globulin 2.4 g/dL (1.3-4.6); Total Protein 5.9 g/dL (6.6-8.7)
[2025-04-22 09:28] VITALS: BP 90/64; PULSE 51; RESP 17; TEMP 36.2; O2SAT 94
[2025-04-22] MEDS: abatacept 1,000 MG in sodium chloride 0.9% (100 ml) 100 ML 200 MG IV (09:37)
[2025-04-22 10:12] VITALS: BP 98/63; PULSE 47; TEMP 36.3; O2SAT 96
== END 2025-05-11 23:59 | disposition home or self-care (01) ==
PROVIDERS: PCP Family Medicine; Visit Provider Internal Medicine Rheumatology
DX: L40.50 Arthropathic psoriasis, unspecified (principal); Z79.899 Other long term (current) drug therapy
CPT/HCPCS: 80076; 82565; 85025; 85651; 86140; 96365; 96375; A4222; J0129; J1200; J7050; J9999

== ENCOUNTER 2025-05-20 08:04 | Oncology outpatient (recurring) (ONCR) | payer OTHER, MEDICAID, SELFPAY ==
[2025-05-20] MEDS: diphenhydrAMINE 50 mg/mL SDV 1mL 25 MG IVP (08:50)
[2025-05-20 08:58] VITALS: BP 102/70; PULSE 56; RESP 18; TEMP 35.8; O2SAT 99
[2025-05-20] MEDS: abatacept 1,000 MG in sodium chloride 0.9% (100 ml) 100 ML 200 MG IV (09:50)
[2025-05-20 10:34] VITALS: BP 105/67; PULSE 50; RESP 16; TEMP 35.9; O2SAT 93
== END 2025-06-11 23:59 | disposition home or self-care (01) ==
PROVIDERS: PCP Family Medicine; Visit Provider Internal Medicine Rheumatology
DX: Z51.12 Encounter for antineoplastic immunotherapy (principal); L40.50 Arthropathic psoriasis, unspecified; Z79.899 Other long term (current) drug therapy
CPT/HCPCS: 96375; 96413; A4222; J0129; J1200; J7050; J9999

== ENCOUNTER → 2025-06-11 09:11 | Outpatient (BNVA) | payer OTHER, MEDICAID, SELFPAY | PROVIDERS: PCP Family Medicine; Visit Provider Physician Assistant | DX: M17.0 Bilateral primary osteoarthritis of knee (principal) | CPT/HCPCS: 20610; 99213; J3301; J9999 ==

== ENCOUNTER 2025-06-17 07:53 | Oncology outpatient (recurring) (ONCR) | payer OTHER, MEDICAID, SELFPAY ==
[2025-06-17 08:07] VITALS: BP 99/66; PULSE 53; RESP 17; TEMP 36.4; O2SAT 95
[2025-06-17] MEDS: diphenhydrAMINE 50 mg/mL SDV 1mL 25 MG IVP (08:36)
[2025-06-17] MEDS: abatacept 1,000 MG in sodium chloride 0.9% (100 ml) 100 ML 200 MG IV (08:59)
[2025-06-17 09:40] VITALS: BP 107/67; PULSE 52; TEMP 36.1; O2SAT 94
== END 2025-07-11 23:59 | disposition home or self-care (01) ==
PROVIDERS: PCP Family Medicine; Visit Provider Internal Medicine Rheumatology
DX: Z53.9 Procedure and treatment not carried out, unspecified reason; Z51.12 Encounter for antineoplastic immunotherapy; L40.50 Arthropathic psoriasis, unspecified; Z79.899 Other long term (current) drug therapy
CPT/HCPCS: 96375; 96413; A4222; J0129; J1200; J7050; J9999

== ENCOUNTER 2025-07-15 07:59 | Oncology outpatient (recurring) (ONCR) | payer MEDICARE, MEDICAID, SELFPAY ==
[2025-07-15 08:37] LABS: Hematocrit 40.4 % (36-47); Hemoglobin 13.10 g/dL (11.27-16.99); Mean Corpuscular HGB Conc 32.4 g/dL (30-55); Mean Corpuscular Hemoglobin 31.3 pg (27-33); Mean Corpuscular Volume 96.7 fl (85-98); Platelet Count 264 10^3/cmm (157-399); Red Blood Count 4.18 10^6/uL (3.85-5.65); White Blood Count 8.49 10^3/uL (3.29-11.43)
[2025-07-15] MEDS: diphenhydrAMINE 50 mg/mL SDV 1mL 25 MG IVP (08:43)
[2025-07-15 08:54] VITALS: BP 100/63; PULSE 54; RESP 17; TEMP 36.3; O2SAT 97
[2025-07-15 09:01] LABS: Alanine Aminotransferase 10 U/L (0-33); Albumin Level 4.0 g/dL (3.5-5.2); Alkaline Phosphatase 66 U/L (35-105); Aspartate Amino Transferase 13 U/L (0-32); Globulin 2.2 g/dL (1.3-4.6); Total Protein 6.2 g/dL (6.6-8.7)
[2025-07-15] MEDS: abatacept 1,000 MG in sodium chloride 0.9% (100 ml) 100 ML 200 MG IV (09:18)
[2025-07-15 09:47] LABS: Absolute Segmented Neutrophil 4.2 10/cmm (1.6-7.1); Atypical Lymphs 11.0 % (0-5); Band Neutrophils Absolute 0.1 10^3/cmm (0.0-1.2); Total Cells Counted 100 (0-100)
[2025-07-15 10:10] VITALS: BP 106/60; PULSE 64; RESP 18; TEMP 36.1; O2SAT 97
== END 2025-08-11 23:59 | disposition home or self-care (01) ==
PROVIDERS: PCP Family Medicine; Visit Provider Internal Medicine Rheumatology
DX: L40.50 Arthropathic psoriasis, unspecified (principal); Z79.899 Other long term (current) drug therapy
CPT/HCPCS: 80076; 82565; 85007; 85027; 85651; 86140; 96365; 96375; 96413; A4222; J0129; J1200; J7050; J9999

== ENCOUNTER → 2025-07-26 11:02 | Outpatient (BNVA) | payer MEDICARE, MEDICAID, SELFPAY | PROVIDERS: PCP Family Medicine; Visit Provider Internal Medicine Rheumatology | DX: L40.50 Arthropathic psoriasis, unspecified (principal); Z79.899 Other long term (current) drug therapy; Z71.85 Encounter for immunization safety counseling; L40.9 Psoriasis, unspecified; I69.351 Hemiplegia and hemiparesis following cerebral infarction affecting right dominant side; Z98.890 Other specified postprocedural states; Q66.221 Congenital metatarsus adductus, right foot | CPT/HCPCS: 73630; 99204; 99214 ==

== ENCOUNTER 2025-08-11 14:55 | Outpatient (CLI) | payer MEDICARE, MEDICAID, SELFPAY | END 2025-08-11 14:56 | disposition home or self-care (01) | LOC: SPT 14:56 | PROVIDERS: PCP Family Medicine; Visit Provider Podiatrist Foot & Ankle Surgery | DX: Z46.89 Encounter for fitting and adjustment of other specified devices (principal); M77.41 Metatarsalgia, right foot; M77.42 Metatarsalgia, left foot | CPT/HCPCS: L3030 ==